=== PATIENT | female | born 1990 | race Caucasian/White ===

== ENCOUNTER 2021-06-05 21:22 | Emergency (ER) | payer OTHER ==
[~2021-06-05 21:22] MED LIST: BROMFED DM COU473 ML PO; FLONASE ALLER15.8 ML; MEDROL 4MG DOSEP4 MG PO; VIBRAMYCIN100 MG PO
[2021-06-05 22:24] LABS: CORONAVIRUS 2019 SARS-COV-2 NEGATIVE (NEGATIVE); INFLUENZA A NAA NEGATIVE (NEGATIVE)
== END 2021-06-06 00:24 | disposition home or self-care (01) ==
LOC: FER 21:22
PROVIDERS: Physician Assistant
DX: B34.9 Viral infection, unspecified (principal); R07.81 Pleurodynia; F17.210 Nicotine dependence, cigarettes, uncomplicated; Z20.822 Contact with and (suspected) exposure to COVID-19; Z88.0 Allergy status to penicillin
CPT/HCPCS: 71046; 93005; U0002